=== PATIENT | male | born 1985 | race Caucasian/White ===

== ENCOUNTER 2016-09-27 21:49 | Inpatient (IN) | payer MEDICARE, MEDICAID ==
[~2016-09-27] VITALS: Ht 167.6 cm; Wt 89.6 kg
--- NOTE | ~2016-09-27 | WND ---
ADMIT: 09/28/2016 RM/LOC: 431 [facility] MR#: [id number] [address] [address] BAKARI MURRAY [facility] [place] [place] [address] Wound Care Clinic SEX: M AGE: 31 : 1985 DATE OF VISIT: 10/03/2016 TIME IN: 0805 hours. TIME OUT: 0830 hours. REASON FOR VISIT: Evaluation and treatment of buttock and figueroa ulcerations. Request for wound care from Dr. Alexander. HISTORY OF PRESENT ILLNESS: This is a 31-year-old male who has been seen previously in 2011, 2012, and 2013 for ischial pressure ulcers bilaterally. He had been treated by Dr. Crespo in [place] and the ulcerations healed. Most recently, he was admitted to [facility] on 09/28/2016 with fevers, chills, and hematuria. He has a history of urinary tract infections most notable for ESBL E. coli in 2011 as well as MRSA. He was found to be in the ER to be febrile with sinus tachycardia and normal blood pressure. His workup indicated pyelonephritis. Therefore, he was admitted for further evaluations and care. Upon admission to the floor, it was noted that he had open areas on his bilateral shins and these were evaluated by Jammie Martinez APRN, from Wound Care on 09/29/2016. She had stated that these appeared to be abrasions to bilateral lower extremities and recommended daily dressing changes with Xeroform. The patient reports that he was told by his physician that the lesions on his legs might be related to a drug reaction. The patient was then reexamined on 09/01/2016, where he is noted to have breakdown on his right buttock due to a shear injury. Recommendations for treatment by Lakia Cruz, certified Wound Care nurse, with Mepilex borders. The patient is currently on a pressure reducing IsoGel mattress with airflow. Complicating his care is the fact that he has quadriplegia secondary to a C1 burst fracture with T9-T10 compression fractures and a history of subarachnoid hemorrhage. He has a neurogenic bladder with long-term indwelling Carrion catheter. PAST MEDICAL HISTORY: Spinal cord injury in 2005 and quadriplegic. Chronic indwelling Carrion catheter secondary to neurogenic bladder. Type 2 diabetes mellitus. Hypertension. Hyperlipidemia. History of MRSA ESBL E. coli urinary tract infections. History of pulmonary embolus. History of nephrolithiasis. Iron deficiency anemia. History of previous pressure ulcerations in his ischial areas. PAST SURGICAL HISTORY: Surgery includes C6 fusion. Temporary tracheostomy which has been removed. Sealed L1 burst fracture and lithotripsy. He also had an I and D of ischial ulcerations in the past. ALLERGIES: No known medication allergies. CURRENT MEDICATIONS: Please see the MAR for further details. 1. Alogliptin. 2. Diflucan. 3. Ditropan. 4. Feosol. 5. Glucophage. ADMIT: 09/28/2016 RM/LOC: 431 [facility] MR#: [id number] [address] [place] [id number] BAKARI MURRAY [address] [place] [address] Wound Care Clinic SEX: M AGE: 31 : 1985 6. Klor-Con. 7. Lopressor. 8. Pepcid. 9. Therapeutic multivitamins. 10.Vitamin D. 11.Xarelto. 12.Zetia. 13.Levemir. 14.NovoLog sliding scale low-dose. 15.Merrem. 16.Vancomycin. PRN medications: 1. Colace. 2. Glutose. 3. Maalox. 4. Motrin. 5. Tylenol. 6. Glucagon. 7. Nitrostat. 8. Tylenol suppositories. 9. D50 and D5NS with normal saline. FAMILY HISTORY: Mother with diabetes, hypertension, depression. SOCIAL HISTORY: He is single. He resides with his mother who cares for him. No tobacco, alcohol, or illicit drug use. Regular diet. 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 He completed the 11th grade of education. REVIEW OF SYSTEMS: He is examined in his room where he is on a pressure relief mattress. He is awake, alert, and oriented x3. He denies any recent fever or chills. No nausea or vomiting. He says appetite is increasing. He denies any cough cold or congestion. No chest pain. He denies any feeling or any pain to his bottom, nor to his shins. PHYSICAL EXAMINATION: VITAL SIGNS: Temperature 98, pulse 89, respirations 14, blood pressure 138/89, O2 sats on room air 99%. Focused exam to the right lower extremity shows foot circumference of 25 cm, ankle 23 cm, and calf 20 cm, malleolus is 27.5 cm. Posterior tibialis and dorsalis pedis is 1+. He has an area on the anterior figueroa that measures 8 cm x 7 cm that has multiple smaller superficial denuded areas noted. The wound bases are bright red with a small amount of sanguinous drainage. He also has scattered crust noted. He does have edema to the lower extremity. To the left lower extremity, foot circumference is 24.5 cm, ankle 26.5 cm, and calf 20 cm, malleolus is 29 cm. On the anterior figueroa area, he does have a total area that measures 14 x 6 cm that has scattered superficial denuded wound bases bright red with sanguinous drainage noted. He does have new ADMIT: 09/28/2016 RM/LOC: 431 [facility] MR#: [id number] [facility] [address] [address] BAKARI MURRAY [address] [place] [address] Wound Care Clinic SEX: M AGE: 31 : 1985 epithelialization occurring in the center of this. He also has scattered intact crust noted to the lower extremity. Posterior tibialis and dorsalis pedis is 1+. This leg is also showing edema. Quick capillary refill bilaterally. To the sacral, coccyx, buttocks area, on his right buttock, he has two areas that are shallow, superficial, with red bases. The one medially measures 4 cm x 3.5 cm, and more laterally 5 cm x 4 cm. These are measuring smaller than previous measurements. These also have a small amount of sanguinous drainage. No surrounding erythema or induration. ASSESSMENT: 1. Superficial full-thickness ulcerations to anterior shins. 2. Shear injury, right buttock. TREATMENT PLAN: We will continue with the current treatment plan. The legs were washed well with warm soapy water, rinsed, and patted dry. Xeroform was applied over the openings, covered with Kerlix. He is to continue to have his legs elevated above heart level. Continue with position changes every 2 hours. Continue with pressure relief mattress. To this buttock areas, after cleansing well with normal saline, Mepilex borders were reapplied. These are to be continued to change daily. Thank you for this referral and Wound will follow while he is inpatient. Celi Enamorado APRN/ dasha JOB #: [id number] CC: Virgilio Alexander, Attending Physician Virgilio Alexander, Family Physician
--- NOTE | ~2016-09-27 | WND ---
ADMIT: 09/28/2016 RM/LOC: 431 [facility] MR#: [id number] [address] [address] BAKARI MURRAY [address] [place] [address] Wound Care Clinic SEX: M AGE: 31 : 1985 DATE OF VISIT: 09/29/2016 TIME IN: 4:30. p.m. TIME OUT: 5:00 p.m. REASON FOR CONSULT: Abrasions to bilateral lower extremities. HISTORY OF PRESENT ILLNESS: Bakari is an alert and oriented 31-year-old quadriplegic male with an abrasion/rash to bilateral lower extremities. Bakari was admitted on September 28, 2016 for fever, chills, and hematuria. Wound Care has been consulted regarding the wounds to bilateral lower extremities. Bakari reports that he has had this rash off and on over the past year. His primary care provider started a cream, which actually made the rash worse. He was then given an antibiotic and it cleared up; however, did return later. He is not sure which antibiotic he was placed on. PAST MEDICAL HISTORY: This patient sustained a spinal cord injury in 2004 resulting in quadriplegia. He has a chronic indwelling Carrion catheter secondary to neurogenic bladder. Type 2 diabetes mellitus, hypertension, hyperlipidemia, history of MRSA, ESBL, E. coli, UTIs, history of pulmonary emboli, history of nephrolithiasis, and iron deficiency anemia. PAST SURGICAL HISTORY: C6 fusion, temporary tracheostomy, which has been removed, sealed L1 burst fracture, and lithotripsy. MEDICATIONS: 1. Xarelto. 2. Potassium. 3. Metformin. 4. NovoLog. 5. Levemir. 6. Oxybutynin. 7. Metoprolol. 8. Multivitamin. 9. Glipizide. 10.Ranitidine. 11.Ferrous sulfate. 12.Vitamin D. 13.Citalopram. 14.Zetia. 15.Januvia. ALLERGIES: No known medication allergies. FAMILY HISTORY: The patient has a family history of type 2 diabetes mellitus, hypertension, and depression. 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 He is a nonsmoker and nondrinker. Denies any ADMIT: 09/28/2016 RM/LOC: 431 [facility] MR#: [id number] [address] [address] BAKARI MURRAY [address] [place] [address] Wound Care Clinic SEX: M AGE: 31 : 1985 additional herb supplements or illicit drug use. REVIEW OF SYSTEMS: He is reporting fever and chills. He denies nausea, vomiting, or diarrhea. He denies chest pain, shortness of breath, or cough. PHYSICAL EXAMINATION: VITAL SIGNS: Pulse 91, temperature 97.8, respirations 14, blood pressure 113/68, and pulse ox 99% on room air. GENERAL: Reveals an alert and oriented 31-year-old male, in no acute distress. EXTREMITIES: Assessment of his left lower extremity reveals a foot circumference of 24 cm, ankle 22 cm, and calf 31 cm. He has abrasions with dark brown crest over the anterior surface of his left lower extremity. The entire area encompasses 14 cm in length x 6 cm in width. Using warm soapy water, I was able to easily remove the crust areas to reveal pink, weepy tissue underneath. Wound beds had irregular borders. Assessment of his right lower extremity shows a foot circumference of 24 cm, ankle of 22, and calf of 31 cm. Over the anterior right figueroa, he has an area of 6 cm in length x 4 cm in width with abraded dark brown crusts. Wound borders are irregular. Again on this right lower extremity using warm soapy water, I was able to remove some of the crusts. It revealed pink tissue. There is no periwound erythema noted. To bilateral lower extremities, he does have 1+ pitting edema. He has 1+ dorsalis pedis pulse. On the posterior lateral right heel, he has a small dark brown crust there too. ASSESSMENT: Abrasions to bilateral lower extremities, unknown etiology. PLAN: After washing bilateral lower extremities with warm soapy water, rinsing, and patting dry, I obtained an aerobic wound culture and sent to the lab. I applied Xeroform over the abraded areas and an ABD and secured it with Herbert. This was done to bilateral lower extremities. Staff will change this daily. He is currently on an antibiotic for his urinary tract infection, Merrem and vancomycin. We will await the wound culture and see if these will cover what is growing in the wound beds. The patient is amenable to plan of care. Wound Care will continue to monitor and follow along with the patient. I would like to thank Dr. Alexander for allowing us to participate in the patient's care. Jammie Martinez, RAUDEL/ dasha JOB #: [id number] CC: Virgilio Alexander, Attending Physician Virgilio Alexander, Family Physician
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
--- NOTE | 2016-09-30 16:45 | CO ---
ADMIT: 09/28/2016 RM/LOC: 431 [facility] MR#: [id number] [address] [address] BAKARI [place] [address] Consultation SEX: M AGE: 31 : 1985 DATE OF CONSULTATION: 09/30/2016 ATTENDING PHYSICIAN: Virgilio Alexander CONSULTING PHYSICIAN: Amara Sorto MD PROBLEM: 1. Neurogenic bladder. 2. Recurrent urinary tract infections. 3. Chronic indwelling Carrion catheter. HISTORY OF PRESENT ILLNESS: This 31-year-old gentleman is a pleasant male with a history of quadriplegia secondary to C1 burst fracture with T9-T10 compression fractures and history of subarachnoid hemorrhage. The patient does have a neurogenic bladder with long-term indwelling Carrion catheter and was actually admitted in December of last year for gross hematuria. At that time, a cystoscopy revealed a large amount of debris within the bladder, which was irrigated and then cauterized. He has an occasional urinary tract infection treated previously with Cipro as well as Ceftin there. In the emergency room in November 2015 of last year, he did have hematuria. Urine culture at that time demonstrated no growth. He has had previous cultures, which have demonstrated E. coli as well as Proteus mirabilis and enterococcus. A recent CT scan this hospitalization demonstrated the upper tracts to be normal. The kidneys did contrast bilaterally with what appears to be tiny nonobstructing calculi in each kidney. There was mild perinephric stranding around the left kidney. There was a minimal amount of air within the bladder with chronic indwelling Carrion catheter. However, no debris or abnormality was noted. Urine cultures have revealed no growth as well as blood cultures. His urine he states has been clear without signs of a recurring gross hematuria. MEDICATIONS: 1. Fish oil 1000 mg daily. 2. Metformin 1000 mg b.i.d. 3. Novolin insulin 20 units at breakfast, lunch, and dinner. 4. Vitamin C supplements. 5. Xarelto 20 mg daily. 6. Iron 325 mg daily. 7. Januvia 100 mg daily. 8. Metoprolol 25 mg b.i.d. 9. Multiple vitamin daily. 10.Oxybutynin 5 mg four times a day. 11.Vitamin D every day. 12.Zetia 10 mg daily. 13.Zolpidem 5 mg daily. 14.Ranitidine 150 mg b.i.d. 15.Citalopram 20 mg daily. 16.Levemir insulin 75 units daily. 17.Vitamin D supplement daily. ADMIT: 09/28/2016 RM/LOC: 431 [facility] MR#: [id number] [address] [address] BAKARI MURRAY [address] [place] [address] Consultation SEX: M AGE: 31 : 1985 ALLERGIES: NONE. OPERATIONS: Multiple orthopedic surgical procedures. Also percutaneous ultrasonic lithotripsy. REVIEW OF SYSTEMS: He has no active cardiac or pulmonary disease. FAMILY HISTORY: Negative for urologic problems. SOCIAL HISTORY: Lives with his cousin. Receives care from his mother at home. PHYSICAL EXAMINATION: GENERAL: The patient is in no acute distress. VITAL SIGNS: Blood pressure is 125/68, temperature is 99.4, pulse 94. ABDOMEN: Soft without masses throughout. : The penis is normal with an indwelling Carrion catheter and clear urine noted in the drainage system. LABORATORY DATA: Sodium is 140, potassium 3.9, chloride 106, CO2 of 25, BUN 4, glucose 114, creatinine of 0.2. CBC showed a white count of 10,100 and hematocrit of 38.6. ASSESSMENT: Neurogenic bladder secondary to his C1 injury controlled with a chronic indwelling Carrion catheter. He does not appear to have any urologic issues at this time other than possible left pyelonephritis, which is being treated with appropriate antibiotics therapy at this time. PLAN: I would not recommend any further urologic intervention at this time since his urine does appear to be clear and on CT scan appears to be normal. I would continue antibiotic therapy as prescribed by Dr. Alexander. Thank you for allowing us to assist in the care of your patient, and we will be available should the need arise. R Leo Sorto MD/ dasha JOB #: [id number] CC: Virgilio Alexander, Attending Physician Virgilio Alexander, Family Physician Virgilio Alexander MD
[2016-10-09] MEDS ORDERED: NOVOLOG FL100 UNIT/1 SQ (17:57)
[2016-10-09] MEDS ORDERED: KLOR-CON M2020 ME1 PO (17:57)
[2016-10-09] MEDS ORDERED: GLUCOPHAGE-DPS500 MG PO (17:57)
[2016-10-09] MEDS ORDERED: XARELTO20 MG PO (17:57)
[2016-10-09] MEDS ORDERED: LEVEMIR FL100 UNIT/1 SQ (17:58)
[2016-10-09] MEDS ORDERED: DITROPAN-DPS5 MG PO (17:58)
[2016-10-09] MEDS ORDERED: METOPROLOL TART25 MG PO (17:58)
[2016-10-09] MEDS ORDERED: FEOSOL-DPS325 MG PO (17:59)
[2016-10-09] MEDS ORDERED: ZANTAC DPS150 MG PO (17:59)
[2016-10-09] MEDS ORDERED: THERA1 EACH PO (17:59)
[2016-10-09] MEDS ORDERED: DIFLUCAN DPS200 MG PO (18:00)
[2016-10-09] MEDS ORDERED: JANUVIA100 MG PO (18:00)
[2016-10-09] MEDS ORDERED: ZETIA10 MG PO (18:00)
[2016-10-09] MEDS ORDERED: VITAMIN D-32000 UNI1 PO (18:00)
[2016-10-09] MEDS ORDERED: TYLENOL DPS325 MG PO (18:01)
[2016-10-09] MEDS ORDERED: ASCORBIC ACID500 MG PO (18:01)
--- NOTE | 2016-10-22 10:04 | DS ---
ADMIT: 09/28/2016 RM/LOC: 528 [facility] MR#: [id number] [address] [address] BAKARI MURRAY [address] [place], [place] [address] [address] General Discharge Summary SEX: M AGE: 31 : 1985 ADMISSION DATE: 09/28/2016 DISCHARGE DATE: 10/08/2016 ADMISSION DIAGNOSIS: Sepsis secondary to pyelonephritis. DISCHARGE DIAGNOSIS: Sepsis secondary to pyelonephritis. SECONDARY DIAGNOSES: Spinal cord injury in 2004, resulting in quadriplegia; chronic indwelling Carrion catheter secondary to neurogenic bladder; type 2 diabetes mellitus; hypertension; hyperlipidemia; history of methicillin- resistant Staphylococcus aureus and extended-spectrum beta-lactamase Escherichia coli urinary tract infections; history of pulmonary emboli, on chronic anticoagulation; history of nephrolithiasis and iron deficiency anemia; superficial full-thickness ulceration on bilateral shins. CONSULTATIONS: Urology and Wound Care. PROCEDURES: None. HISTORY OF PRESENT ILLNESS: The patient is a very pleasant 31-year-old male, who presented to the emergency room with 48 hours of fever, chills, and hematuria. He is found to be febrile in the emergency room with sinus tachycardia, but was hemodynamically stable. Workup was consistent with urinary tract infection and likely left-sided pyelonephritis. On admission, his white blood cell count was 11.5, hemoglobin 13.5, with 27,000 white blood cells in his urine and 9,000 blood cells. HOSPITAL COURSE: The patient was started on cefepime and ertapenem in the emergency room and then switched to meropenem and vancomycin on the floor due to his previous resistant organisms. He continued to be febrile intermittently for the first 48 hours and on hospital day #3, reportedly felt significantly improved. Wound Care was consulted and wound cultures were taken of superficial ulcerations on his bilateral shins, which were chronic issue for the patient. He also had a small shearing injury to his right buttock, which was also evaluated by Wound Care. The recommendation was to wash his bilateral shins with warm soapy water and then dress with Xeroform, ABD, and then secure with Herbert wrap. Urology was consulted to see the patient due to his chronic indwelling Carrion catheter and the recommendations were for no further urologic intervention as they agreed with the assessment of pyelonephritis and the current antibiotic treatment. Urine culture grew multiple organisms including Enterococcus and Neelima glabrata. Enterococcus faecalis was penicillin susceptible. Blood cultures show no growth. The patient responded to the antibiotics and completed a 7-day course of IV vancomycin. He was started on fluconazole for the Neelima in his urine on hospital day #4. His home Celexa and p.r.n. Zofran were held due to interactions while taking the Diflucan, potential interaction. On hospital day #10, the patient was noted to be stable for discharge. HOME MEDICATIONS: ADMIT: 09/28/2016 RM/LOC: 528 [facility] MR#: [id number] [address] [place] [id number] BAKARI MURRAY [address] [place] [address] General Discharge Summary SEX: M AGE: 31 : 1985 1. Diflucan 200 mg p.o. daily for 5 additional days. 2. Ditropan 5 mg p.o. q.i.d. 3. Ferrous sulfate 325 mg p.o. daily. 4. Glucophage 1000 mg p.o. b.i.d. 5. Januvia 100 mg p.o. daily. 6. Potassium chloride 20 mEq p.o. daily. 7. Multivitamin 1 tab p.o. daily. 8. Vitamin C 1000 mg p.o. b.i.d. 9. Vitamin D 2000 International Units p.o. daily. 10.Xarelto 20 mg p.o. daily. 11.Zetia 10 mg p.o. daily. 12.Levemir 60 units subcutaneous daily. Medication Changes: Celexa and Zofran were held due to potential interaction with fluconazole. Fluconazole was prescribed due to Neelima growth in urine, the patient is to complete 5 additional days. CONDITION ON DISCHARGE: Stable. DISPOSITION: Home with home health care. FOLLOWUP: Follow up with primary care physician in 1 to 2 weeks. Hyun Subramanian MD Resident / Rodriguez Ashton MD / modl JOB #: [id number] CC: Virgilio Alexander MD, Attending Physician Virgilio Alexander MD, Family Physician
[2016-11-08] MEDS ORDERED: OMNICEF DPS300 MG PO (08:02)
[2016-11-08] MEDS ORDERED: CELEXA DPS20 MG PO (08:02)
[2016-11-08] MEDS ORDERED: GLUCOTROL DPS5 MG PO (08:02)
== END 2016-10-08 12:30 | disposition home health service (06) | DRG 698 ==
LOC: ER 21:49 → 4PCU 09-28 00:30 → 5MS 09-28 00:30
PROVIDERS: ADMIT Family Medicine
DX: T83.518A Infection and inflammatory reaction due to other urinary catheter, initial encounter (principal); A41.9 Sepsis, unspecified organism; G82.54 Quadriplegia, C5-C7 incomplete; N31.9 Neuromuscular dysfunction of bladder, unspecified; E83.42 Hypomagnesemia; N12 Tubulo-interstitial nephritis, not specified as acute or chronic; L98.419 Non-pressure chronic ulcer of buttock with unspecified severity; Z23 Encounter for immunization; E11.9 Type 2 diabetes mellitus without complications; S90.511A Abrasion, right ankle, initial encounter; S90.512A Abrasion, left ankle, initial encounter; R00.1 Bradycardia, unspecified; I10 Essential (primary) hypertension; D50.9 Iron deficiency anemia, unspecified; E78.5 Hyperlipidemia, unspecified; K21.9 Gastro-esophageal reflux disease without esophagitis; F32.9 Major depressive disorder, single episode, unspecified; R21 Rash and other nonspecific skin eruption; E87.6 Hypokalemia; Z86.14 Personal history of Methicillin resistant Staphylococcus aureus infection; Z79.4 Long term (current) use of insulin; Z86.711 Personal history of pulmonary embolism; Z79.01 Long term (current) use of anticoagulants; Z86.73 Personal history of transient ischemic attack (TIA), and cerebral infarction without residual deficits